=== PATIENT | male | born 1960 | race Caucasian/White ===

== ENCOUNTER 2019-08-15 03:55 | Emergency (ER) | payer MEDICAID, OTHER ==
[~2019-08-15] VITALS: Ht 188 cm; Wt 90.3 kg
[~2019-08-15 03:55] MED LIST: IBU600T; PCN
[2019-08-15] MEDS ORDERED: LORazepam 2MG/ML-1ML VIAL IV ONE (05:00)
[2019-08-15 05:12] LABS: Urine Amorphous Crystal FEW /hpf (None Seen); Urine Bacteria FEW /hpf (None Seen); Urine Blood Negative /uL (Negative); Urine Mucus FEW (None Seen); Urine Specific Gravity 1.027 (1.001-1.035); Urine WBC 1 /hpf (0 - 3)
[2019-08-15 05:17] LABS: Alcohol, Urine < 3.0 mg/dL (0-5); Amphetamine Screen, Urine POSITIVE (NEGATIVE); Barbiturate Scree,Urine NEGATIVE (NEGATIVE); Benzodiazephine Screen, Urine NEGATIVE (NEGATIVE); Cocaine Screen, Urine NEGATIVE (NEGATIVE); Opiate Scree,Urine NEGATIVE (NEGATIVE); Phencyclidine Screen, Urine NEGATIVE (NEGATIVE)
[2019-08-15 05:24] LABS: Cannabinoid Screen, Urine POSITIVE (NEGATIVE)
[2019-08-15 05:44] LABS: Basophils # (auto) 0 10 ^3/uL (0-0.2); Basophils % (auto) 0.5 % (0.0-2.0); Eosinophils # (auto) 0.1 10 ^3/uL (0-0.8); Eosinophils % (auto) 1.1 % (0.0-7.0); Hematocrit 45.3 % (41.0-53.0); Hemoglobin 15.4 g/dL (13.5-17.5); Lymphocytes # (auto) 1.7 10 ^3/uL (0.4-5.4); Lymphocytes % (auto) 21.4 % (10.0-50.0); Mean Corpuscular Hemoglobin 30.8 pg (28.0-32.0); Mean Corpuscular Volume 90.7 fL (80.0-100.0); Monocytes # (auto) 0.6 10 ^3/uL (0-1.3); Monocytes % (auto) 7.5 % (0.0-12.0); Neutrophils # (auto) 5.6 10 ^3/uL (1.6-8.6); Neutrophils % (auto) 69.5 % (37.0-80.0); Nucleated Red Blood Cells % 0.3 %; Platelet Count (auto) 254 10^3/uL (140-450); Red Cell Distribution Width 13.2 % (11.8-14.3); White Blood Cell 8.1 10^3/uL (4.4-10.8)
[2019-08-15 06:01] LABS: Salicylate 2.4 mg/dL (2.8-20.0)
[2019-08-15 06:03] LABS: Anion Gap 6 (5-15); Blood Alcohol < 3.0 mg/dL (0-5); Blood Urea Nitrogen 11 mg/dL (7-18); Calcium 8.8 mg/dL (8.5-10.1); Carbon Dioxide 27 mmol/L (21-32); Chloride 105 mmol/L (98-107); Glucose 142 mg/dL (74-106); Potassium 3.5 mmol/L (3.5-5.1); Sodium 138 mmol/L (136-145)
[2019-08-15 06:04] LABS: Acetaminophen < 2.0 ug/mL (10-30)
[2019-08-15 06:06] LABS: Alanine Aminotransferase 50 U/L (16-61); Alkaline Phosphatase 56 U/L (45-117); Aspartate Aminotransferase 30 U/L (15-37); BUN/Creatinine Ratio 12.5; Bilirubin, Total 0.5 mg/dL (0.2-1.0); GFR African American 115 mL/min; GFR Non-African American 95 mL/min; Total Protein 7.6 g/dL (6.4-8.2)
[2019-08-15 07:31] VITALS: BP 128/84
--- NOTE | 2019-08-15 13:06 | NUR ---
ss consult Per consult substance abuse and homeless. Patient discharged prior to being assessed. Addendum: 08/16/19 at 0807 by Liz GOODRICH Amended: Links added.
== END 2019-08-15 08:47 | disposition home or self-care (01) ==
LOC: ER 03:58
DX: F19.10 Other psychoactive substance abuse, uncomplicated (principal); R45.1 Restlessness and agitation; I10 Essential (primary) hypertension; E11.9 Type 2 diabetes mellitus without complications
CPT/HCPCS: 36415; 80053; 80307; 80320; 80329; 81001; 85025; 96374; 99283; J2060

== ENCOUNTER 2020-01-29 22:16 | Emergency (ER) | payer MEDICAID ==
[~2020-01-29] VITALS: Ht 188 cm; Wt 82.1 kg
[2020-01-30 00:08] VITALS: BP 126/79
[2020-01-30] MEDS ORDERED: HYDROcodone-ACET 5/325MG TAB PO ONE (01:45)
== END 2020-01-30 02:06 | disposition home or self-care (01) ==
LOC: ER 22:17
DX: M54.16 Radiculopathy, lumbar region (principal); M79.18 Myalgia, other site; F17.210 Nicotine dependence, cigarettes, uncomplicated; F15.10 Other stimulant abuse, uncomplicated; E11.9 Type 2 diabetes mellitus without complications; I10 Essential (primary) hypertension; Z59.0 Homelessness
CPT/HCPCS: 72100; 76870

== ENCOUNTER 2021-10-22 00:38 | Emergency (ER) | payer MEDICAID ==
[~2021-10-22] VITALS: Ht 188 cm; Wt 83.9 kg
[2021-10-22 06:24] VITALS: BP 126/74
[2021-10-22] MEDS ORDERED: DOXY-332 PO (07:36)
[2021-10-22] MEDS ORDERED: ACET-1158 PO (07:36)
== END 2021-10-22 08:13 | disposition home or self-care (01) ==
LOC: ER 00:38
DX: J06.9 Acute upper respiratory infection, unspecified (principal); I10 Essential (primary) hypertension; E11.9 Type 2 diabetes mellitus without complications; F17.210 Nicotine dependence, cigarettes, uncomplicated; Z20.822 Contact with and (suspected) exposure to COVID-19
CPT/HCPCS: 36415; 71045; 87804